=== PATIENT | female | born 1980 | race Two or more races ===

== ENCOUNTER 2025-06-10 09:43 | Outpatient (CLI) | payer OTHER | END 2025-06-10 09:50 | disposition home or self-care (01) | LOC: RAD 09:43 | PROVIDERS: ATTEND General Practice | DX: K59.00 Constipation, unspecified (principal) ==

== ENCOUNTER 2025-06-14 07:25 | Outpatient (CLI) | payer OTHER | END 2025-06-14 07:35 | disposition home or self-care (01) | LOC: TOM 07:25 | DX: Z93.3 Colostomy status (principal) ==